=== PATIENT | male | born 1940 | race Hispanic/Latino ===

== ENCOUNTER 2018-10-30 20:47 | Emergency (ER) | payer MEDICARE ==
[~2018-10-30 20:47] MED LIST changes: -ACETAMINOPHEN 1000 MG/100 ML IV ONE; -BACITRACIN 50,000 UNIT VIAL ONE; -BUPIVACAINE HCL 0.5% INJ 30 ML VIAL INJ ONE; -CEFAZOLIN SOD 2 GM/D5W 50ML 50 ML IV ONE; -DEXAMETHASONE SOD PHOS INJ 4 MG/ML VIAL ONE; -FENTANYL CITRATE/PF 100MCG/2 ML INJ ONE; -GLYCOPYRROLATE INJ 1MG/ 5 ML SYR ONE; -LIDOCAINE HCL 2% LOCAL INJ 5 ML SDV VIAL INJ ONE; -MIDAZOLAM HCL 2 MG/2 ML VIAL ONE; -NEOSTIGMINE 5 MG/5ML SYR ONE; -ONDANSETRON HCL INJ 2MG/ML 2ML 2 MG/ML VIAL ONE; -PROPOFOL IV EMULSION 10 MG/ML 20 ML VIAL ONE; -ROCURONIUM BROMIDE 10 MG/ML 5ML VIAL ONE; -SEVOFLURANE INHAL SOLN 250 ML PEN BTL ONE
== END 2018-10-30 21:18 | disposition left against medical advice (07) ==
LOC: ER 20:47
DX: Z53.21 Procedure and treatment not carried out due to patient leaving prior to being seen by health care provider (principal)

== ENCOUNTER 2018-10-30 22:01 | Emergency (ER) | payer MEDICARE ==
--- NOTE | 2018-10-30 23:10 | NUR ---
22 FR COUDE CATHETER INSERTED IN MINIMAL RESISTANCE, PATIENT TOLERATED PROCEDURE WELL, CATHETER SECURED WITH DENNY POMPA TO RIGHT THIGH AREA, REFERRAL TO UROLOGIST,
== END 2018-10-30 23:24 | disposition home or self-care (01) ==
LOC: FSED 22:01
DX: I10 Essential (primary) hypertension (principal); N40.1 Benign prostatic hyperplasia with lower urinary tract symptoms; R33.8 Other retention of urine; E11.9 Type 2 diabetes mellitus without complications; I48.91 Unspecified atrial fibrillation; E78.5 Hyperlipidemia, unspecified; F41.9 Anxiety disorder, unspecified; F32.9 Major depressive disorder, single episode, unspecified; M19.90 Unspecified osteoarthritis, unspecified site
CPT/HCPCS: 99282

== ENCOUNTER → 2018-10-30 | Day surgery (SDC) | payer MEDICARE ==
[2018-10-22 16:36] LABS: BASOPHILS % 0.3 % (0.0-1.0); EOSINOPHILS # (AUTO) 0.1 (0.0-0.4); EOSINOPHILS % 1.3 % (0.0-6.0); HEMATOCRIT 37.4 % (38.2-49.6); HEMOGLOBIN 12.5 g/dL (14.0-18.0); LYMPHOCYTES # (AUTO) 2.9 (1.0-3.2); LYMPHOCYTES % 40.4 % (18.0-39.1); MEAN CORPUSCULAR HEMOGLOBIN 30.3 pg (28-32); MEAN CORPUSCULAR HGB CONC 33.4 g/dL (31-35); MEAN CORPUSCULAR VOLUME 90.8 fL (81-99); MONOCYTES # (AUTO) 0.8 (0.2-0.8); MONOCYTES % 11.2 % (4.4-11.3); NEUTROPHILS # (AUTO) 3.3 (2.1-6.9); NEUTROPHILS % 46.5 % (38.7-80.0); PLATELET COUNT 175 x10e3/uL (140-360); RED BLOOD COUNT 4.12 x10e6/uL (4.3-5.7)
--- NOTE | 2018-10-22 16:43 | Diagnostic Imaging Report ---
EXAMINATION: CHEST 2 VIEWS INDICATION: Pre-admit. 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 LUNGS: Lungs are moderately inflated. There is no evidence of pneumonia or pulmonary edema. Middle patchy bibasilar opacities, likely atelectasis. PLEURA: No pleural effusion or pneumothorax. HEART AND MEDIASTINUM: The cardiomediastinal silhouette is unremarkable. There are atherosclerotic calcifications within the aorta. BONES AND SOFT TISSUES: No acute osseous abnormality. UPPER ABDOMEN: No free air under the diaphragm. IMPRESSION: No acute radiographic abnormality. Signed by: Dr. Zenon Day MD on 10/22/2018 4:40 PM
[2018-10-22 16:53] LABS: ANION GAP 12.7 mmol/L (8-16); BLOOD UREA NITROGEN 20 mg/dL (7-26); BUN/CREATININE RATIO 18 (6-25); CALCIUM 9.6 mg/dL (8.4-10.2); CARBON DIOXIDE 27 mmol/L (22-29); CHLORIDE 102 mmol/L (98-107); CREATININE, SERUM 1.11 mg/dL (0.72-1.25); EST GLOMERULAR FILTRATION RATE > 60 ML/MIN (60-); GLUCOSE 145 mg/dL (74-118); POTASSIUM 4.7 mmol/L (3.5-5.1); SODIUM 137 mmol/L (136-145)
[~2018-10-30] MED LIST: ACETAMINOPHEN 1000 MG/100 ML IV ONE; BACITRACIN 50,000 UNIT VIAL ONE; BUPIVACAINE HCL 0.5% INJ 30 ML VIAL INJ ONE; CEFAZOLIN SOD 2 GM/D5W 50ML 50 ML IV ONE; DEXAMETHASONE SOD PHOS INJ 4 MG/ML VIAL ONE; FENTANYL CITRATE/PF 100MCG/2 ML INJ ONE; FLOMAX0.4 MG PO; GLIPIZIDE5 MG PO; GLYCOPYRROLATE INJ 1MG/ 5 ML SYR ONE; LIDOCAINE HCL 2% LOCAL INJ 5 ML SDV VIAL INJ ONE; LISINOPRIL10 MG PO; METFORMIN HCL500 MG PO; MIDAZOLAM HCL 2 MG/2 ML VIAL ONE; NEOSTIGMINE 5 MG/5ML SYR ONE; ONDANSETRON HCL INJ 2MG/ML 2ML 2 MG/ML VIAL ONE; PRAVASTATIN SOD20 MG PO; PROPOFOL IV EMULSION 10 MG/ML 20 ML VIAL ONE; ROCURONIUM BROMIDE 10 MG/ML 5ML VIAL ONE; SEVOFLURANE INHAL SOLN 250 ML PEN BTL ONE
--- OUTSIDE RECORDS SUMMARY | 2018-10-30 05:40 | XMS REPORT ---
Author Author [facility] Organization [facility] Address Unknown Phone Unavailable Care Team Providers Care [employer] Technician Name Role Phone UNKNOWN, REFFERING PP Unavailable WILIAM CARTY Unavailable Unavailable SAMMIE FLORES M.D. Unavailable Unavailable Payers Payer Name Policy Type Policy Number Effective Date Expiration Date Problems This patient has no known problems. Allergies, Adverse Reactions, Alerts Allergy Name Allergy Type Status Severity Reaction(s) Onset Date Inactive Date Treating Clinician Comments No Known Allergies DA Active U 2018-08-16 00:00:00 Medications This patient has no known medications. Results Test Description Test Time Test Comments Text Results Atomic Results Result Comments CHEST 2 VIEWS 2018-10-22 16:38:00 [place] [address] Patient Name: BOONE NEGRON MR #: [id number] : 1940 Age/Sex: 78/M Req #: [id number] Adm Physician: Ordered by: WILIAM CARTY MD Report #: [id number] Location: OR Room/Bed: Procedure: [id number] DX/CHEST 2 VIEWS Exam Date: 10/22/18 Exam Time: 1615 REPORT STATUS: Signed EXAMINATION: CHEST 2 VIEWS INDICATION: Pre-admit. 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 LUNGS: Lungs are moderately inflated. There is no evidence of pneumonia or pulmonary edema. Middle patchy bibasilar opacities, likely atelectasis. PLEURA: No pleural effusion or pneumothorax. HEART AND MEDIASTINUM: The cardiomediastinal silhouette is unremarkable. There are atherosclerotic calcifications within the aorta. BONES AND SOFT TISSUES: No acute osseous abnormality. UPPER ABDOMEN: No free air under the diaphragm. IMPRESSION: No acute radiographic abnormality. Signed by: Dr. Kuldip Saeed MD on 10/22/2018 4:40 PM Dictated By: KULDIP SAEED MD 1640 Transcribed By: OANH on 10/22/18 1640 COPY TO: WILIAM CARTY MD HGBA1C 2018-08-16 12:22:00 GLYCOSYLATED HEMOGLOBIN (HA1C) (test code=GLYHGB) 7.8 % 4.5-6.2 ESTIMATED AVERAGE GLUCOSE (test code=EAG) 177 MG/DL BASIC METABOLIC [id number] 12:22:00* Test Item Value Reference Range Comments SODIUM (test code=NA) 139 mmol/L 135-148 POTASSIUM (test code=K) 4.0 mmol/L 3.5-5.1 CHLORIDE (test code=CL) 102 mmol/L 101-109 CARBON DIOXIDE (test code=CO2) 27.2 mmol/L 21-32 ANION GAP (test code=GAP) 14 mmol/L 10-20 GLUCOSE (test code=GLU) 253 mg/dL 74-106 BLOOD UREA NITROGEN (test code=BUN) 16 mg/dL 3-21 GLOMERULAR FILTRATION RATE (test code=GFR) > 60 mL/min >=60 Estimated GFR by using Modified MDRD formula.Chronic kidney disease is defined as either kidney damageor GFR <60 mL/min/1.73 m2 for >3 months. CREATININE (test code=CREAT) 0.99 mg/dL 0.55-1.3 BUN/CREATININE RATIO (test code=BUN/CREA) 16.2 10-20 CALCIUM (test code=CA) 8.8 mg/dL 8.4-10.2 HEPATIC FUNCTION [id number] 12:22:00* Test Item Value Reference Range Comments TOTAL PROTEIN (test code=PROT) 7.7 g/dL 6.5-8.4 ALBUMIN (test code=ALB) 3.6 g/dL 3.4-4.8 GLOBULIN (test code=GLOB) 4.1 G/DL 1-10 ALBUMIN/GLOBULIN RATIO (test code=A/G) 0.9 RATIO 0.75-1.50 BILIRUBIN TOTAL (test code=BILT) 1.10 mg/dL 0.0-1.0 BILIRUBIN DIRECT (test code=BILD) 0.20 mg/dL 0.0-0.30 SGOT/AST (test code=AST) 18 U/L 6-32 SGPT/ALT (test code=ALT) 26 U/L 12-78 Note: Change in REFERENCE RANGE due to new reagent method. ALKALINE PHOSPHATASE TOTAL (test code=ALKP) 100 U/L 38-126 [id number] 12:22:00* Test Item Value Reference Range Comments LIPASE (test code=LIP) 191 U/L 128-270 [id number] 12:22:00* Test Item Value Reference Range Comments TROPONIN-I (test code=TROPI) <0.015 ng/mL 0.00-0.056 BASIC METABOLIC [id number] 12:13:00* Test Item Value Reference Range Comments SODIUM (test code=NA) 139 mmol/L 135-148 POTASSIUM (test code=K) 4.0 mmol/L 3.5-5.1 CHLORIDE (test code=CL) 102 mmol/L 101-109 CARBON DIOXIDE (test code=CO2) 27.2 mmol/L 21-32 ANION GAP (test code=GAP) 14 mmol/L 10-20 GLUCOSE (test code=GLU) 253 mg/dL 74-106 BLOOD UREA NITROGEN (test code=BUN) 16 mg/dL 3-21 GLOMERULAR FILTRATION RATE (test code=GFR) > 60 mL/min >=60 Estimated GFR by using Modified MDRD formula.Chronic kidney disease is defined as either kidney damageor GFR <60 mL/min/1.73 m2 for >3 months. CREATININE (test code=CREAT) 0.99 mg/dL 0.55-1.3 BUN/CREATININE RATIO (test code=BUN/CREA) 16.2 10-20 CALCIUM (test code=CA) 8.8 mg/dL 8.4-10.2 HEPATIC FUNCTION [id number] 12:13:00* Test Item Value Reference Range Comments TOTAL PROTEIN (test code=PROT) gram/dL 6.4-8.2 ALBUMIN (test code=ALB) g/dL 3.4-5.0 GLOBULIN (test code=GLOB) g/dL 2.7-4.2 ALBUMIN/GLOBULIN RATIO (test code=A/G) 0.75-1.50 BILIRUBIN TOTAL (test code=BILT) mg/dL 0.2-1.2 BILIRUBIN DIRECT (test code=BILD) mg/dL 0.0-0.20 SGOT/AST (test code=AST) IUnit/L 15-37 SGPT/ALT (test code=ALT) U/L 10-69 ALKALINE PHOSPHATASE TOTAL (test code=ALKP) IUnit/L 45-117 [id number] 12:13:00* Test Item Value Reference Range Comments LIPASE (test code=LIP) Unit/L 144-286 [id number] 12:13:00* Test Item Value Reference Range Comments TROPONIN-I (test code=TROPI) ng/mL 0-0.045 CBC W/O [id number] 12:05:00* Test Item Value Reference Range Comments WHITE BLOOD CELL (test code=WBC) 5.3 K/mm3 4.5-12.5 RED BLOOD CELL (test code=RBC) 4.44 mill/mm3 4.0-5.8 HEMOGLOBIN (test code=HGB) 13.6 gram/dL 13.0-17.5 HEMATOCRIT (test code=HCT) 40.9 % 42.0-52.0 MEAN CELL VOLUME (test code=MCV) 92.1 fL 80-98 MEAN CELL HGB (test code=MCH) 30.6 picogram 27.0-33.0 MEAN CELL HGB CONCETRATION (test code=MCHC) 33.3 gram/dL 33.0-36.0 RED CELL DISTRIBUTION WIDTH (test code=RDW) 14.0 % 11.6-16.2 RED CELL DISTRIBUTION WIDTH SD (test code=RDW-SD) 46.3 fL 39.2-49.5 PLATELET COUNT (test code=PLT) 172 K/mm3 150-450 MEAN PLATELET VOLUME (test code=MPV) 9.8 fL 6.7-11.0 URINALYSIS [id number] 12:04:00* Test Item Value Reference Range Comments UA COLOR (test code=COLU) YELLOW YELLOW UA APPEARANCE (test code=APPU) CLEAR CLEAR UA GLUCOSE DIPSTICK (test code=DGLUU) 1000(3+) mg/dL NEGATIVE UA BILIRUBIN DIPSTICK (test code=BILU) NEGATIVE mg/dL NEGATIVE UA KETONE DIPSTICK (test code=KETU) neg mg/dL NEGATIVE UA SPECIFIC GRAVITY (test code=SGU) 1.015 1.001-1.035 UA BLOOD DIPSTICK (test code=TOBIAS) neg Dale/uL NEGATIVE UA PH DIPSTICK (test code=SUSAN) 5.0 5.0-8.0 UA PROTEIN DIPSTICK (test code=PROU) neg mg/dL Neg-15 UA UROBILINIOGEN DIPSTICK (test code=URO) norm mg/dL 0.0-0.2 UA NITRITE DIPSTICK (test code=DEVIN) NEGATIVE NEGATIVE UA LEUKOCYTE ESTERASE DIPSTICK (test code=LEUU) NEGATIVE uL NEGATIVE UA WBC (test code=WBCU) NONE SEEN per HPF 0-5 IN SOME URINARY TRACT INFECTIONS THERE MAY NOT BE ENOUGHWBCs IN THE URINE TO TRIGGER AN AUTOMATIC (REFLEX) URINECULTURE. A SEPERATE ORDER FOR URINE CULTURE IS RECOMMENDEDIF THERE IS STRONG SUPPORT FOR A URINARY TRACT INFECTIONCLINICALLY. UA RBC (test code=RBCU) 0-2 per HPF 0-5 UA EPITHELIAL CELLS (test code=EPIU) Rare (0-1/hpf) per HPF Few UA BACTERIA (test code=BACU) TRACE per HPF NONE Urine Source? Clean CatchURINALYSIS [id number] 11:56:00* Test Item Value Reference Range Comments UA COLOR (test code=COLU) YELLOW YELLOW UA APPEARANCE (test code=APPU) CLEAR CLEAR UA GLUCOSE DIPSTICK (test code=DGLUU) 1000(3+) mg/dL NEGATIVE UA BILIRUBIN DIPSTICK (test code=BILU) NEGATIVE mg/dL NEGATIVE UA KETONE DIPSTICK (test code=KETU) neg mg/dL NEGATIVE UA SPECIFIC GRAVITY (test code=SGU) 1.015 1.001-1.035 UA BLOOD DIPSTICK (test code=TOBIAS) neg Dale/uL NEGATIVE UA PH DIPSTICK (test code=SUSAN) 5.0 5.0-8.0 UA PROTEIN DIPSTICK (test code=PROU) neg mg/dL Neg-15 UA UROBILINIOGEN DIPSTICK (test code=URO) norm mg/dL 0.0-0.2 UA NITRITE DIPSTICK (test code=DEVIN) NEGATIVE NEGATIVE UA LEUKOCYTE ESTERASE DIPSTICK (test code=LEUU) NEGATIVE uL NEGATIVE UA WBC (test code=WBCU) per HPF 0-5 Urine Source? Clean CatchPOC Glucose, [id number] 11:21:00* Test Item Value Reference Range Comments POC Glucose (test code=POCGLUC) 256 mg/dL 70-115 If you consider your patient critically ill, the [facility] Accu-Chek InformII metershould not be used for Glucose determinations.Draw a venous Glucose and send to the Main Lab for Analysis. Hepatic Function [id number] 08:16:00* Test Item Value Reference Range Comments Prot Total (test code=TP) 5.0 g/dL 6.4-8.3 Albumin (test code=ALB) 3.1 g/dL 3.5-5.2 A/G Ratio (test code=AGRATIO) 1.6 Ratio Globulin (test code=GLOB) 1.9 2.9-3.1 Bili Total (test code=TBIL) 1.0 mg/dL 0.1-0.9 Bili Direct (test code=DBIL) 0.3 mg/dL 0.0-0.3 Bili Indirect (test code=IBIL) 0.7 Alk Phos (test code=APHOS) 95 U/L 40-129 AST (test code=AST) 43 U/L 1-40 ALT (test code=ALT) 40 U/L 1-41 Basic Metabolic [id number] 08:16:00* Test Item Value Reference Range Comments Sodium (test code=NA) 141 mmol/L 135-145 Potassium (test code=K) 4.0 mmol/L 3.5-5.1 Chloride (test code=CL) 105 mmol/L 98-105 Carbon Dioxide (test code=CO2) 31 mmol/L 22-29 Glucose (test code=GLU) 137 mg/dL 70-115 Blood Urea Nitrogen (test code=BUN) 18 mg/dL 8-23 Creatinine (test code=CREAT) 1.0 mg/dL 0.7-1.2 Calcium (test code=CA) 8.3 mg/dL 8.3-10.5 BUN/Creatinine Ratio (test code=BCRATIO) 18.0 Anion Gap (test code=AGAP) 5 mmol/L 7-16 Estimated GFR (test code=GFR) >60 mL/min/1.73m2 eGFR (estimated Glomerular Filtration Rate) is an estimated value,calculated from the patient's serum creatinine using the MDRD equation.It is NOT the patient's actual GFR. The eGFR provides a more clinicallyuseful measure of kidney disease than serum creatinine alone.This calculation takes sex and race into account, if the informationis provided. If the race is not provided, and the patient isAfrican-Iraqi, multiply by 1.212. If sex is not provided, and thepatient is female, multiply by 0.742. Results for patients <18 years ofage have not been validated by the MDRD study and should be interpretedwith caution.eGFR Result Interpretation:eGFR > or=60 is in the Normal RangeeGFR < 60 may mean kidney diseaseeGFR < 15 may mean kidney failureRanges recommended by the National Kidney Foundat ion,http://nkdep.nih.gov CBC with [id number] 07:42:00* Test Item Value Reference Range Comments WBC (test code=WBC) 7.2 K/cumm 4.4-10.5 RBC (test code=RBC) 3.40 M/cumm 4.10-5.70 Hemoglobin (test code=HGB) 10.6 gm/dL 13.4-17.4 Hematocrit (test code=HCT) 32.3 % 38.7-52.0 MCV (test code=MCV) 95.1 fL 80-100 MCH (test code=MCH) 31.3 pg 27.0-32.5 MCHC (test code=MCHC) 32.9 g/dL 32.0-37.5 RDW (test code=RDW) 13.0 % 11.5-14.5 Platelet Count (test code=PLTCT) 156 K/cumm 140-440 MPV (test code=MPV) 7.9 fL Diff Method (test code=DIFFM) Auto Neutrophil (test code=NEUT) 75.2 % 36-70 Lymphocyte (test code=LYMPH) 15.9 % 12-44 Monocyte (test code=MONO) 7.5 % 0-11 Eosinophil (test code=EOS) 1.3 % 0-7 Basophil (test code=BASO) 0.0 % 0-2 Neutro Abs (test code=ANEUT) 5.4 K/cumm 1.6-7.4 Lymph Abs (test code=ALYMPH) 1.1 K/cumm 0.5-4.6 Glades Abs (test code=AMONO) 0.5 K/cumm 0.0-1.2 Eos Abs (test code=AEOS) 0.10 K/cumm 0.00-0.74 Baso Abs (test code=ABASO) 0.0 K/cumm 0.00-0.21 POC Glucose, [id number] 07:05:00* Test Item Value Reference Range Comments POC Glucose (test code=POCGLUC) 134 mg/dL 70-115 If you consider your patient critically ill, the [facility] Accu-Chek InformII metershould not be used for Glucose determinations.Draw a venous Glucose and send to the Main Lab for Analysis. POC Glucose, [id number] 21:47:00* Test Item Value Reference Range Comments POC Glucose (test code=POCGLUC) 239 mg/dL 70-115 If you consider your patient critically ill, the [facility] Accu-Chek InformII metershould not be used for Glucose determinations.Draw a venous Glucose and send to the Main Lab for Analysis. POC Glucose, [id number] 16:19:00* Test Item Value Reference Range Comments POC Glucose (test code=POCGLUC) 201 mg/dL 70-115 Notify RN or MDIf you consider your patient critically ill, the [facility] Accu-Chek InformII metershould not be used for Glucose determinations.Draw a venous Glucose and send to the Main Lab for Analysis. POC Glucose, [id number] 11:28:00* Test Item Value Reference Range Comments POC Glucose (test code=POCGLUC) 216 mg/dL 70-115 Notify RN or MDIf you consider your patient critically ill, the [facility] Accu-Chek InformII metershould not be used for Glucose determinations.Draw a venous Glucose and send to the Main Lab for Analysis. Hepatic Function [id number] 06:57:00* Test Item Value Reference Range Comments Prot Total (test code=TP) 5.0 g/dL 6.4-8.3 Albumin (test code=ALB) 3.2 g/dL 3.5-5.2 A/G Ratio (test code=AGRATIO) 1.8 Ratio Globulin (test code=GLOB) 1.8 2.9-3.1 Bili Total (test code=TBIL) 1.2 mg/dL 0.1-0.9 Bili Direct (test code=DBIL) 0.4 mg/dL 0.0-0.3 Bili Indirect (test code=IBIL) 0.8 Alk Phos (test code=APHOS) 70 U/L 40-129 AST (test code=AST) 54 U/L 1-40 ALT (test code=ALT) 45 U/L 1-41 Basic Metabolic [id number] 06:57:00* Test Item Value Reference Range Comments Sodium (test code=NA) 137 mmol/L 135-145 Potassium (test code=K) 4.1 mmol/L 3.5-5.1 Chloride (test code=CL) 100 mmol/L 98-105 Carbon Dioxide (test code=CO2) 30 mmol/L 22-29 Glucose (test code=GLU) 131 mg/dL 70-115 Blood Urea Nitrogen (test code=BUN) 20 mg/dL 8-23 Creatinine (test code=CREAT) 1.1 mg/dL 0.7-1.2 Calcium (test code=CA) 8.1 mg/dL 8.3-10.5 BUN/Creatinine Ratio (test code=BCRATIO) 18.2 Anion Gap (test code=AGAP) 7 mmol/L 7-16 Estimated GFR (test code=GFR) >60 mL/min/1.73m2 eGFR (estimated Glomerular Filtration Rate) is an estimated value,calculated from the patient's serum creatinine using the MDRD equation.It is NOT the patient's actual GFR. The eGFR provides a more clinicallyuseful measure of kidney disease than serum creatinine alone.This calculation takes sex and race into account, if the informationis provided. If the race is not provided, and the patient isAfrican-Iraqi, multiply by 1.212. If sex is not provided, and thepatient is female, multiply by 0.742. Results for patients <18 years ofage have not been validated by the MDRD study and should be interpretedwith caution.eGFR Result Interpretation:eGFR > or=60 is in the Normal RangeeGFR < 60 may mean kidney diseaseeGFR < 15 may mean kidney failureRanges recommended by the National Kidney Foundat ion,http://nkdep.nih.gov POC Glucose, [id number] 06:51:00* Test Item Value Reference Range Comments POC Glucose (test code=POCGLUC) 144 mg/dL 70-115 Notify RN or MDIf you consider your patient critically ill, the [facility] Accu-Chek InformII metershould not be used for Glucose determinations.Draw a venous Glucose and send to the Main Lab for Analysis. CBC with [id number] 06:40:00* Test Item Value Reference Range Comments WBC (test code=WBC) 10.2 K/cumm 4.4-10.5 RBC (test code=RBC) 3.52 M/cumm 4.10-5.70 Hemoglobin (test code=HGB) 10.9 gm/dL 13.4-17.4 Hematocrit (test code=HCT) 31.9 % 38.7-52.0 MCV (test code=MCV) 90.7 fL 80-100 MCH (test code=MCH) 31.0 pg 27.0-32.5 MCHC (test code=MCHC) 34.1 g/dL 32.0-37.5 RDW (test code=RDW) 13.3 % 11.5-14.5 Platelet Count (test code=PLTCT) 149 K/cumm 140-440 MPV (test code=MPV) 9.8 fL Diff Method (test code=DIFFM) Auto Neutrophil (test code=NEUT) 83.1 % 36-70 Lymphocyte (test code=LYMPH) 10.7 % 12-44 Monocyte (test code=MONO) 5.7 % 0-11 Eosinophil (test code=EOS) 0.3 % 0-7 Basophil (test code=BASO) 0.1 % 0-2 Neutro Abs (test code=ANEUT) 8.4 K/cumm 1.6-7.4 Lymph Abs (test code=ALYMPH) 1.1 K/cumm 0.5-4.6 Glades Abs (test code=AMONO) 0.6 K/cumm 0.0-1.2 Eos Abs (test code=AEOS) 0.03 K/cumm 0.00-0.74 Baso Abs (test code=ABASO) 0.0 K/cumm 0.00-0.21 POC Glucose, [id number] 21:46:00* Test Item Value Reference Range Comments POC Glucose (test code=POCGLUC) 201 mg/dL 70-115 Notify RN or MDIf you consider your patient critically ill, the [facility] Accu-Chek InformII metershould not be used for Glucose determinations.Draw a venous Glucose and send to the Main Lab for Analysis. POC Glucose, [id number] 16:52:00* Test Item Value Reference Range Comments POC Glucose (test code=POCGLUC) 260 mg/dL 70-115 Notify RN or MDIf you consider your patient critically ill, the [facility] Accu-Chek InformII metershould not be used for Glucose determinations.Draw a venous Glucose and send to the Main Lab for Analysis. POC Glucose, [id number] 14:43:00* Test Item Value Reference Range Comments POC Glucose (test code=POCGLUC) 231 mg/dL 70-115 If you consider your patient critically ill, the [facility] Accu-Chek InformII metershould not be used for Glucose determinations.Draw a venous Glucose and send to the Main Lab for Analysis. XR ABDOMEN KUB [id number] 13:45:43EXAM: ABDOMEN ONE VIEWINDICATION: K81.0: ACUTE CHOLECYSTITISCOMPARISON: None availableTECHNIQUE: AP view of the abdomen.FINDINGS: There is an enteric tube overlying the stomach. The bowel gas pattern isnormal. No pneumoperitoneum is identified. There is a surgical drain overlying the right upper quadrant. There aresurgical skin rosaura noted. No retained surgical device is identified.The osseous structures are unremarkable.IMPRESSION: No retained surgical device is identified.LOCATION: R16 POC Glucose, [id number] 07:41:00* Test Item Value Reference Range Comments POC Glucose (test code=POCGLUC) 220 mg/dL 70-115 Notify RN or MDIf you consider your patient critically ill, the [facility] Accu-Chek InformII metershould not be used for Glucose determinations.Draw a venous Glucose and send to the Main Lab for Analysis. Comprehensive Metabolic [id number] 06:44:00* Test Item Value Reference Range Comments Sodium (test code=NA) 138 mmol/L 135-145 Potassium (test code=K) 4.3 mmol/L 3.5-5.1 Chloride (test code=CL) 100 mmol/L 98-105 Carbon Dioxide (test code=CO2) 28 mmol/L 22-29 Glucose (test code=GLU) 246 mg/dL 70-115 Blood Urea Nitrogen (test code=BUN) 14 mg/dL 8-23 Creatinine (test code=CREAT) 1.0 mg/dL 0.7-1.2 Calcium (test code=CA) 9.1 mg/dL 8.3-10.5 Prot Total (test code=TP) 5.9 g/dL 6.4-8.3 Albumin (test code=ALB) 3.8 g/dL 3.5-5.2 A/G Ratio (test code=AGRATIO) 1.8 Ratio Globulin (test code=GLOB) 2.1 2.9-3.1 Bili Total (test code=TBIL) 2.5 mg/dL 0.1-0.9 Alk Phos (test code=APHOS) 73 U/L 40-129 AST (test code=AST) 18 U/L 1-40 ALT (test code=ALT) 15 U/L 1-41 BUN/Creatinine Ratio (test code=BCRATIO) 14.0 Anion Gap (test code=AGAP) 10 mmol/L 7-16 Estimated GFR (test code=GFR) >60 mL/min/1.73m2 eGFR (estimated Glomerular Filtration Rate) is an estimated value,calculated from the patient's serum creatinine using the MDRD equation.It is NOT the patient's actual GFR. The eGFR provides a more clinicallyuseful measure of kidney disease than serum creatinine alone.This calculation takes sex and race into account, if the informationis provided. If the race is not provided, and the patient isAfrican-Iraqi, multiply by 1.212. If sex is not provided, and thepatient is female, multiply by 0.742. Results for patients <18 years ofage have not been validated by the MDRD study and should be interpretedwith caution.eGFR Result Interpretation:eGFR > or=60 is in the Normal RangeeGFR < 60 may mean kidney diseaseeGFR < 15 may mean kidney failureRanges recommended by the National Kidney Foundat ion,http://nkdep.nih.gov Magnesium, [id number] 06:44:00* Test Item Value Reference Range Comments Magnesium (test code=MG) 1.7 mg/dL 1.7-2.5 [id number] 06:44:00* Test Item Value Reference Range Comments Phosphorus (test code=PO4) 2.4 mg/dL 2.70-4.50 [id number] 06:44:00* Test Item Value Reference Range Comments Lipase (test code=LIP) 12 U/L 13-60 CBC with [id number] 06:39:00* Test Item Value Reference Range Comments WBC (test code=WBC) 19.7 K/cumm 4.4-10.5 RBC (test code=RBC) 4.13 M/cumm 4.10-5.70 Hemoglobin (test code=HGB) 13.0 gm/dL 13.4-17.4 Hematocrit (test code=HCT) 38.8 % 38.7-52.0 MCV (test code=MCV) 94.1 fL 80-100 MCH (test code=MCH) 31.6 pg 27.0-32.5 MCHC (test code=MCHC) 33.6 g/dL 32.0-37.5 RDW (test code=RDW) 13.1 % 11.5-14.5 Platelet Count (test code=PLTCT) 173 K/cumm 140-440 MPV (test code=MPV) 7.8 fL Diff Method (test code=DIFFM) Auto Neutrophil (test code=NEUT) 88.4 % 36-70 Lymphocyte (test code=LYMPH) 4.8 % 12-44 Monocyte (test code=MONO) 6.2 % 0-11 Eosinophil (test code=EOS) 0.5 % 0-7 Basophil (test code=BASO) 0.1 % 0-2 Neutro Abs (test code=ANEUT) 17.4 K/cumm 1.6-7.4 Lymph Abs (test code=ALYMPH) 0.9 K/cumm 0.5-4.6 Glades Abs (test code=AMONO) 1.2 K/cumm 0.0-1.2 Eos Abs (test code=AEOS) 0.10 K/cumm 0.00-0.74 Baso Abs (test code=ABASO) 0.0 K/cumm 0.00-0.21 POC Glucose, [id number] 21:47:00* Test Item Value Reference Range Comments POC Glucose (test code=POCGLUC) 246 mg/dL 70-115 If you consider your patient critically ill, the [facility] Accu-Chek InformII metershould not be used for Glucose determinations.Draw a venous Glucose and send to the Main Lab for Analysis. Urinalysis [id number] 13:28:00* Test Item Value Reference Range Comments Color (test code=COLOR) Yellow Yellow,Straw,Pl yellow Clarity (test code=CLAR) Clear Clear Specific [place] (test code=SPGR) 1.035 1.001-1.035 pH (test code=PH) 5.0 5.0-9.0 Ketone (test code=KET) 50 mg/dL Negative Glucose (test code=GLUCUR) 1000 mg/dL Negative Protein (test code=PROT) 25 mg/dL Negative Bilirubin (test code=BILI) Negative mg/dL Negative Occult Blood (test code=UDOB) Small Negative Urobilinogen (test code=UROB) 0.2 mg/dL 0.2-1.0 Nitrite (test code=NIT) Negative Negative Leuk Esterase (test code=LEUK) Negative Negative Micros Exam (test code=MEXAM) Indicated Epithelial Cells (test code=EPI) 0-2 /LPF 0-30 WBC, Urine (test code=UWBC) 0-5 /HPF 0-5 RBC, Urine (test code=URBC) 0-3 /HPF 0-5 Bacteria (test code=BACT) None /HPF US [id number] 12:55:16DICTATION LOCATION: [id number]: Abd pain- Epigastric painCOMPARISON: None available.TECHNIQUE: Sonography of the gallbladder. FINDINGS:There are small, shadowing echogenic gallstones. The gallbladder wall isthickened to 12 mm. There is pericholecystic fluid. The common bile ductis nondilated, measuring 4 mm. The technologist reports a negativesonographic Joseph sign. IMPRESSION: Cholelithiasis, gallbladder wall thickening and pericholecystic fluid.Findings are suspicious for acute cholecystitis. Correlation with HIDAscan can be performed if clinically warranted.Basic Metabolic [id number] 11:42:00* Test Item Value Reference Range Comments Sodium (test code=NA) 138 mmol/L 135-145 Potassium (test code=K) 4.1 mmol/L 3.5-5.1 Chloride (test code=CL) 99 mmol/L 98-105 Carbon Dioxide (test code=CO2) 27 mmol/L 22-29 Glucose (test code=GLU) 252 mg/dL 70-115 Blood Urea Nitrogen (test code=BUN) 15 mg/dL 8-23 Creatinine (test code=CREAT) 0.8 mg/dL 0.7-1.2 Calcium (test code=CA) 9.6 mg/dL 8.3-10.5 BUN/Creatinine Ratio (test code=BCRATIO) 18.8 Anion Gap (test code=AGAP) 12 mmol/L 7-16 Estimated GFR (test code=GFR) >60 mL/min/1.73m2 eGFR (estimated Glomerular Filtration Rate) is an estimated value,calculated from the patient's serum creatinine using the MDRD equation.It is NOT the patient's actual GFR. The eGFR provides a more clinicallyuseful measure of kidney disease than serum creatinine alone.This calculation takes sex and race into account, if the informationis provided. If the race is not provided, and the patient isAfrican-Iraqi, multiply by 1.212. If sex is not provided, and thepatient is female, multiply by 0.742. Results for patients <18 years ofage have not been validated by the MDRD study and should be interpretedwith caution.eGFR Result Interpretation:eGFR > or=60 is in the Normal RangeeGFR < 60 may mean kidney diseaseeGFR < 15 may mean kidney failureRanges recommended by the National Kidney Foundat ion,http://nkdep.nih.gov [id number] 11:36:00* Test Item Value Reference Range Comments Lipase (test code=LIP) 22 U/L 13-60 CBC with [id number] 11:34:00* Test Item Value Reference Range Comments WBC (test code=WBC) 16.2 K/cumm 4.4-10.5 RBC (test code=RBC) 4.77 M/cumm 4.10-5.70 Hemoglobin (test code=HGB) 15.1 gm/dL 13.4-17.4 Hematocrit (test code=HCT) 42.2 % 38.7-52.0 MCV (test code=MCV) 88.6 fL 80-100 MCH (test code=MCH) 31.7 pg 27.0-32.5 MCHC (test code=MCHC) 35.8 g/dL 32.0-37.5 RDW (test code=RDW) 13.1 % 11.5-14.5 Platelet Count (test code=PLTCT) 200 K/cumm 140-440 MPV (test code=MPV) 9.6 fL Diff Method (test code=DIFFM) Manual Neutrophil (test code=NEUT) 83.0 % 36-70 Bands (test code=BAND) 8.0 % 0-6 Lymphocyte (test code=LYMPH) 5.0 % 12-44 Monocyte (test code=MONO) 3.0 % 0-11 Myelocyte (test code=MYELO) 1.0 % 0.0-0.0 Neutro Abs (test code=ANEUT) 14.7 K/cumm 1.6-7.4 Lymph Abs (test code=ALYMPH) 0.8 K/cumm 0.5-4.6 Glades Abs (test code=AMONO) 0.5 K/cumm 0.0-1.2 RBC Morphology (test code=RBCMRPH) Normal Platelet Est (test code=PLTEST) Normal Platelet on Smear Prothrombin [id number] 10:17:00* Test Item Value Reference Range Comments PT (test code=PT) 11.80 seconds 9.78-13.35 INR (test code=INR) 1.04 Ratio 0.6-1.2 XR CHEST 1 [id number] 10:00:52EXAM: CHEST ONE VIEWINDICATION: Chest painCOMPARISON: None availableTECHNIQUE: AP view of the chest.FINDINGS: The cardiomediastinal silhouette is normal. The lungs are clearbilaterally. No pneumothorax or pleural effusion is identified. Theosseous structures are unremarkable.IMPRESSION: No acute cardiopulmonary process.LOCATION: [facility] Comprehensive Metabolic [id number] 09:55:00* Test Item Value Reference Range Comments Sodium (test code=NA) 136 mmol/L 135-145 Potassium (test code=K) 5.2 mmol/L 3.5-5.1 Hemolyzed Chloride (test code=CL) 97 mmol/L 98-105 Carbon Dioxide (test code=CO2) 27 mmol/L 22-29 Glucose (test code=GLU) 264 mg/dL 70-115 Blood Urea Nitrogen (test code=BUN) 15 mg/dL 8-23 Creatinine (test code=CREAT) 0.9 mg/dL 0.7-1.2 Calcium (test code=CA) 9.5 mg/dL 8.3-10.5 Prot Total (test code=TP) 7.4 g/dL 6.4-8.3 Albumin (test code=ALB) 4.6 g/dL 3.5-5.2 A/G Ratio (test code=AGRATIO) 1.6 Ratio Globulin (test code=GLOB) 2.8 2.9-3.1 Bili Total (test code=TBIL) 1.5 mg/dL 0.1-0.9 Alk Phos (test code=APHOS) 84 U/L 40-129 AST (test code=AST) 35 U/L 1-40 Hemolyzed ALT (test code=ALT) 20 U/L 1-41 BUN/Creatinine Ratio (test code=BCRATIO) 16.7 Anion Gap (test code=AGAP) 12 mmol/L 7-16 Estimated GFR (test code=GFR) >60 mL/min/1.73m2 eGFR (estimated Glomerular Filtration Rate) is an estimated value,calculated from the patient's serum creatinine using the MDRD equation.It is NOT the patient's actual GFR. The eGFR provides a more clinicallyuseful measure of kidney disease than serum creatinine alone.This calculation takes sex and race into account, if the informationis provided. If the race is not provided, and the patient isAfrican-Iraqi, multiply by 1.212. If sex is not provided, and thepatient is female, multiply by 0.742. Results for patients <18 years ofage have not been validated by the MDRD study and should be interpretedwith caution.eGFR Result Interpretation:eGFR > or=60 is in the Normal RangeeGFR < 60 may mean kidney diseaseeGFR < 15 may mean kidney failureRanges recommended by the National Kidney Foundat ion,http://nkdep.nih.gov Troponin [id number] 09:55:00* Test Item Value Reference Range Comments Troponin T (test code=GAGE) <0.010 ng/mL 0.000-0.090 [id number] 09:55:00* Test Item Value Reference Range Comments NT ProBnp (test code=PBNP) 178 pg/mL 0-124 POC Glucose, [id number] 09:19:00* Test Item Value Reference Range Comments POC Glucose (test code=POCGLUC) 240 mg/dL 70-115 If you consider your patient critically ill, the Pearl Accu-Chek InformII metershould not be used for Glucose determinations.Draw a venous Glucose and send to the Main Lab for Analysis.
[2018-10-30 08:55] VITALS: BP 135/71
--- NOTE | 2018-10-30 11:43 | Operative Report ---
DATE OF PROCEDURE: 10/30/2018 SURGEON: Pedro Blackwood MD PREOPERATIVE DIAGNOSIS: Incisional hernia. POSTOPERATIVE DIAGNOSES: Incisional hernia with adhesions. PROCEDURES: Repair of incisional hernia with mesh, lysis of adhesions. [employer]EE BENEFITS: None. ANESTHESIA: General endotracheal. INDICATIONS AND FINDINGS: The patient is a 78-year-old male with multiple previous surgeries, who presented with complaints of a bulge in his upper abdomen site of previous surgery, there were two separate hernias in the upper midline. The larger one of fascial defect was approximately 2.5 cm in diameter, smaller fascial defect about 1 cm in diameter. There were considerable adhesions in the area involving the omentum, which were lysed. TECHNIQUE: After adequate general endotracheal anesthesia with the patient in supine position, the abdomen was prepped and draped in sterile fashion with ChloraPrep solution. Going to the previous upper midline wound an incision was made, carried down through the subcutaneous tissue. The herniated mass was identified. There was omentum within the hernia and this was dissected free from surrounding tissues. The fascial defect completely delineated. There were adhesions of omentum to the abdominal wall which were lysed. The fascia of the herniated mass was about 5 cm in diameter, but the fascial defect was about 2.5 cm in diameter. As adhesions were lysed, there was a second hernia found inferior to the larger one with a fascial defect about 1 cm with a bridge of fascia between the two. There was omentum within this hernia also which was dissected free and reduced in the peritoneal cavity. The fascial defect completely delineated the hernia and the adhesions in the area were lysed. Once this was done, a separate mesh was soaked in antibiotic solution, fashion, appropriate size and sutured to the undersurface of the fascia in the intraperitoneal position with a running horizontal mattress suture of 0-Prolene sutures taken well away from the edge of the defect. Care was taken not to entrap any of the intraabdominal organs. Once the mesh was in place within the edge of the fascia closed transversely over the mesh with a running suture of 0-Prolene. Hemostasis of the wound was seen to be adequate and was irrigated with antibiotic solution. The wound was infiltrated with 0.5% Marcaine. Subcutaneous tissue was closed with running suture of 3-0 Vicryl. Skin was closed with rosaura. Sterile dressing was applied. The patient tolerated the procedure well. Estimated blood loss was 10 mL. There were no complications. All counts were correct and the patient was taken to the recovery room in satisfactory condition. MD MAX Palacio/ROLDANL /[id number] cc: Brett Toth MD
== END | disposition home or self-care (01) ==
LOC: OR 05:37
PROVIDERS: ATTEND Surgery
DX: K43.2 Incisional hernia without obstruction or gangrene (principal); K66.0 Peritoneal adhesions (postprocedural) (postinfection); E11.9 Type 2 diabetes mellitus without complications; K21.9 Gastro-esophageal reflux disease without esophagitis; I10 Essential (primary) hypertension; Z01.810 Encounter for preprocedural cardiovascular examination; Z01.812 Encounter for preprocedural laboratory examination; Z01.818 Encounter for other preprocedural examination; Z79.84 Long term (current) use of oral hypoglycemic drugs; Z85.038 Personal history of other malignant neoplasm of large intestine
CPT/HCPCS: 36415 ×2; 49560 ×2; 49568; 71046; 80048; 82948; 85025; 93005; C1781; J0131; J0690; J1100; J2001; J2250; J2405; J2704; J3490